=== PATIENT | male | born 1965 | race Caucasian/White ===

== ENCOUNTER 2016-02-21 13:43 | Emergency (ER) | payer OTHER ==
[2016-02-21 14:45] VITALS: BP 129/76
[2016-02-21] MEDS ORDERED: Ketorolac INJ* 60 MG/2 ML VIAL IM ONE (15:43)
--- NOTE | 2016-03-06 22:28 | ED ---
Ana Colvin Anna, scribed for Susy Maldonado MD on 02/21/16 at 1541 . Back Pain - HPI Summary HPI Summary: Patient is a 50 y/o male coming to [facility] presenting with sudden onset of constant back pain that began at 09:40 when he slipped on a wet floor at work. He slipped twice, once at 09:30 and once at 09:40, and that is when the pain began. The patient worked until 13:00. Per triage notes, the patient describes the severity of the pain as 10/10. The patient reports that he has hurt his back previously, when he would lift something heavy or slip and twist his back. He was previously treated with Toradol, which alleviated the pain somewhat. The patient reports that he has history of addiction and no adverse reactions to his previous treatments. He additionally reports he has a cold for the last 2- 3 weeks. He uses an inhaler normally but ran out. - History of Current Complaint Chief Complaint: UCBackPain Stated Complaint: BACK PAIN Hx Obtained From: Patient - Allergies/Home Medications Allergies/Adverse Reactions: Allergies Allergy/AdvReac Type Severity Reaction Status Date / Time Penicillins Allergy Severe Swelling Verified 03/06/16 09:40 Of Face,Lips,& Throat Bee Venom Allergy See Comment Verified 03/06/16 09:40 Live Virus Medication Allergy Intermediate Hives Uncoded 03/06/16 09:40 LATEX Allergy Rash Uncoded 03/06/16 09:40 NEOPRENE Allergy Rash Uncoded 03/06/16 09:40 PMH/Surg Hx/FS Hx/Imm Hx Endocrine/Hematology History: Denies: Hx Anticoagulant Therapy, Hx Diabetes, Hx Thyroid Disease Cardiovascular History: Denies: Hx Congestive Heart Failure, Hx Deep Vein Thrombosis, Hx Hypertension , Hx Myocardial Infarction, Hx Pacemaker/ICD Respiratory History: Reports: Hx Asthma - keeps inhalers Denies: Hx Chronic Obstructive Pulmonary Disease (COPD), Hx Lung Cancer GI History: Denies: Hx Gall Bladder Disease, Hx Gastrointestinal Bleed, Hx Ulcer, Hx Urosepsis History: Denies: Hx Kidney Stones, Hx Renal Disease Musculoskeletal History: Reports: Other Musculoskeletal History - right knee problems Neurological History: Denies: Hx Dementia, Hx Migraine, Hx Seizures, Hx Transient Ischemic Attacks (TIA) Psychiatric History: Reports: Hx Anxiety Denies: Hx Depression, Hx Schizophrenia, Hx Bipolar Disorder - Surgical History Surgery Procedure, Year, and Place: torn meniscus R knee; TFCC reattachment L hand Infectious Disease History: No Infectious Disease History: Denies: Hx Clostridium Difficile, Hx Hepatitis, Hx Human Immunodeficiency Virus (HIV), Hx of Known/Suspected MRSA, Hx Shingles, Hx Tuberculosis, Hx Known/ Suspected VRE, Hx Known/Suspected VRSA, History Other Infectious Disease, Traveled Outside the [place] in Last 30 Days - Family History Known Family History: Positive: Hypertension, Other - Brother has Hep C - Social History Occupation: Employed Full-time Alcohol Use: Rare Substance Use Type: Reports: None Smoking Status (MU): Light Every Day Tobacco Smoker Type: Cigarettes Amount Used/How Often: 1/2 ppd Length of Time of Smoking/Using Tobacco: 20+ YEARS Review of Systems Constitutional: Other - see hpi Eyes: Negative ENT: Negative Cardiovascular: Negative Respiratory: Negative Positive: Other - recovering from cold Gastrointestinal: Negative Genitourinary: Negative Positive: Arthralgia, Myalgia - See HPI Neurological: Other - see hpi Psychological: Normal All Other Systems Reviewed And Are Negative: Yes Physical Exam Triage Information Reviewed: Yes Vital Signs On Initial Exam: Initial Vitals Temp Pulse Resp BP Pulse Ox 97.8 F 73 18 129/76 98 02/21/16 14:41 02/21/16 14:41 02/21/16 14:41 02/21/16 14:41 02/21/16 14:41 Vital Signs Reviewed: Yes Appearance: Positive: Well-Nourished Skin: Positive: Other - Normal, no visible or reported rash Eyes: Positive: Normal ENT: Positive: Normal ENT inspection Neck: Positive: Other: - Normal, No adenopathy appreciated Respiratory/Lung Sounds: Positive: Other - Normal, no dyspnea, no tachypnea, normal respiratory rate. Chest non-tender, lungs clear, normal breath sounds, no respiratory distress, no accessory muscle use. Cardiovascular: Positive: Normal - Heart rate regular, good general skin color, good capillary refill. Reflexes B, BR, P were 2++ and equal bilaterally. Abdomen Description: Positive: Nontender, No Organomegaly, Soft Musculoskeletal: Positive: Other - Tender, left side low back. No point jay tenderness. + spasm low back. Denies b/b issue. Neurological: Positive: Normal - Nonfocal, grossly intact, Other - gait slow, steady. c/o pain. Psychiatric: Positive: Normal - Conversing easily and appropriately Diagnostics - Vital Signs Vital Signs Temp Pulse Resp BP Pulse Ox 02/21/16 14:41 97.8 F 73 18 129/76 98 - Laboratory Lab Statement: Any lab studies that have been ordered have been reviewed, and results considered in the medical decision making process. Back Pain Course/Dx - Course Course Of Treatment: ISTOP ref # [id number]. Mr. Hyatt insists that he wants to return to work tomorrow. Says that this has happened a number of times, and gets better with pain med and waiting a day. last script for norco 03/08/15 # 20. He also requests toradol shot. Encouraged to f/u with PCP, Dr. Foote. He says that he plans to, but has to cover the bill first. States he has had this problem several times in the past. Assessment/Plan: see above - Diagnoses Provider Diagnoses: Low back strain Discharge - Discharge Plan Condition: Stable Disposition: HOME Prescriptions: Albuterol HFA INHALER* [Ventolin HFA Inhaler*] 1 - 2 puff INH Q4H PRN #1 mdi PRN Reason: Wheezing Patient Education Materials: Sciatica (ED), Low Back Strain (ED) Forms: *Work Release Referrals: Shukri Foote MD [Medical Doctor] - No Primary Care Phys,NOPCP [Primary Care Provider] - The documentation as recorded by the Ana almonte Anna accurately reflects the service I personally performed and the decisions made by me, Susy Maldonado MD.
== END 2016-02-21 16:00 | disposition home or self-care (01) ==
LOC: UCEAST 13:43
DX: S39.012A Strain of muscle, fascia and tendon of lower back, initial encounter (principal); W18.49XA Other slipping, tripping and stumbling without falling, initial encounter; Y93.9 Activity, unspecified; Y92.89 Other specified places as the place of occurrence of the external cause; Y99.0 Civilian activity done for income or pay; Z88.0 Allergy status to penicillin; F17.210 Nicotine dependence, cigarettes, uncomplicated
CPT/HCPCS: 96372; 99212; G0463; J1885

== ENCOUNTER 2016-03-04 17:11 | Emergency (ER) | payer OTHER ==
[2016-03-04 17:20] VITALS: BP 135/77
[2016-03-04] MEDS ORDERED: Sulfamethox/Trimethoprim DS 800/160* TAB PO ONE (17:35)
[2016-03-04] MEDS ORDERED: Cephalexin CAP* 500 MG PO ONE (17:35)
[2016-03-04] MEDS ORDERED: Tetan/Diph/Pertus SYR(Tdap)* 0.5 ML SYR(BOOSTRIX) use SYR IM ONE (17:35)
--- NOTE | 2016-03-04 17:43 | UC ---
Hand/Wrist HPI - HPI Summary HPI Summary: 50 yo male states he got a splinter in his right middle finger about 5 days ago States he pulled a "black thing out" Since then his finger has swelled and now he has red streaks on the dorsum of his hand no f/c no n/v no hx MRSA - History Of Current Complaint Chief Complaint: UCSkin Stated Complaint: HAND AND ELBOW PAIN Time Seen by Provider: 03/04/16 17:23 Hx Obtained From: Patient Onset/Duration: Sudden Onset, Lasting Days Severity Initially: Mild Severity Currently: Moderate Pain Intensity: 7 Pain Scale Used: 0-10 Numeric Character Of Pain: Aching, Throbbing Aggravating Factor(s): Movement, Other - touch Alleviating: Rest, Elevation Associated Signs And Symptoms: Positive: Swelling, Redness Related History: Dominant Hand Right - Allergies/Home Medications Allergies/Adverse Reactions: Allergies Allergy/AdvReac Type Severity Reaction Status Date / Time Penicillins Allergy Severe Swelling Verified 03/04/16 17:20 Of Face,Lips,& Throat Bee Venom Allergy See Comment Verified 03/04/16 17:20 Live Virus Medication Allergy Intermediate Hives Uncoded 03/04/16 17:20 LATEX Allergy Rash Uncoded 03/04/16 17:20 NEOPRENE Allergy Rash Uncoded 03/04/16 17:20 Home Medications: Home Medications Baclofen TAB* [Lioresal TAB*] 10 mg PO TID PRN 03/04/16 [History Confirmed 03/04] PMH/Surg Hx/FS Hx/Imm Hx Previously Healthy: Yes Endocrine History Of: Denies: Diabetes, Thyroid Disease, Hyperthyroidism, Hypothyroidism, Dyslipidemia Cardiovascular History Of: Denies: Cardiac Disorders, Hypertension, Pacemaker/ICD, Myocardial Infarction , Congestive Heart Failure, Atrial Fibrillation, Deep Vein Thrombosis, Bleeding Disorders Respiratory History Of: Reports: Asthma - keeps inhalers Denies: COPD GI/ History Of: Denies: Gastroesophageal Reflux, Ulcer, Gastrointestinal Bleed, Gall Bladder Disease, Kidney Stones, Diverticulitis, Renal Disease, Urosepsis Neurological History Of: Denies: TIA, CVA, Dementia, Seizures, Migraine Psychological History Of: Reports: Anxiety Denies: Depression, Bipolar Disorder, Schizophrenia, Post Traumatic Stress Disorder Cancer History Of: Denies: Lung Cancer, Colorectal Cancer, Breast Cancer, Prostate Cancer, Cervical Cancer Other History Of: Negative For: HIV, Hepatitis B, Hepatitis C, Anticoagulant Therapy - Surgical History Surgical History: Yes Surgery Procedure, Year, and Place: torn meniscus R knee; TFCC reattachment L hand - Family History Known Family History: Positive: Hypertension, Other - Brother has Hep C - Social History Alcohol Use: Rare Substance Use Type: None Smoking Status (MU): Light Every Day Tobacco Smoker Type: Cigarettes Amount Used/How Often: 1/2 ppd Length of Time of Smoking/Using Tobacco: 20+ YEARS - Immunization History Most Recent Influenza Vaccination: NEVER Most Recent Tetanus Shot: UTD Review of Systems Constitutional: Negative Skin: Negative Eyes: Negative ENT: Negative Respiratory: Negative Cardiovascular: Negative Gastrointestinal: Negative Genitourinary: Negative Motor: Negative Neurovascular: Negative Musculoskeletal: Arthralgia Neurological: Negative Psychological: Negative All Other Systems Reviewed And Are Negative: Yes Physical Exam Triage Information Reviewed: Yes Appearance: Well-Appearing, No Pain Distress, Well-Nourished Vital Signs: Initial Vital Signs Temp 98.2 F 03/04/16 17:14 Pulse 81 03/04/16 17:14 Resp 16 03/04/16 17:14 BP 135/77 03/04/16 17:14 Pulse Ox 98 03/04/16 17:14 Vital Signs Reviewed: Yes Eyes: Positive: Conjunctiva Clear ENT: Positive: Hearing grossly normal. Negative: Nasal congestion, Nasal drainage, Trismus, Muffled/hoarse voice Neck: Positive: Supple, Nontender, No Lymphadenopathy Respiratory: Positive: Lungs clear, Normal breath sounds, No respiratory distress, No accessory muscle use Cardiovascular: Positive: RRR, No Murmur. Negative: Tachycardia, Bradycardia Musculoskeletal: Positive: Other: - see image Neurological: Positive: Alert Psychological Exam: Normal Skin Exam: Other - see image Procedures - Procedure Summary Procedure Summary: incision and drainage of RIGHT MIDDLE FINGER permit signed time out digital block sterile prep incised at site of healed PW thin serous d/c unable to find FB despite probing culture obtained - Incision and Drainage Site: Right Middle finger Anesthesia: Digital, Lidocaine - marcaine/bicarb Instrument(s): Needle Hand/Wrist Course/Dx - Differential Dx/Diagnosis Provider Diagnoses: Right middle finger infection (suspect retained foreign body ). Ascending Lymphangitis - Physician Notifications Discussed Patient Care With: D/W Dr. Gonzalez- states pt should call office in AM and see Dr. Sanchezkristin Lewis Discharge - Discharge Plan Condition: Stable Disposition: HOME Prescriptions: Cephalexin CAP* [Keflex CAP*] 500 mg PO QID #28 cap Diclofenac 1% GEL (NF) [Voltaren 1% GEL (NF)] 1 applic TOPICAL DAILY #1 tube HYDROcodone/ACETAMIN 5-325 MG* [[place] 5-325 TAB*] 1 tab PO Q4H PRN #12 tab MDD 6 PRN Reason: Pain Sulfamethox/Trimethoprim DS* [Bactrim DS 800/160 TAB*] 1 tab PO BID #14 tab Patient Education Materials: Soft Tissue Foreign Body (ED), Lymphangitis (ED) Forms: *Work Release Referrals: Radha Sanchez MD [Medical Doctor] - 1 Day Additional Instructions: As discussed I suspect you have a retained foreign body in your right middle finger It is infected a culture is pending take another bactrim DS tonight then one twice daily take another keflex tonight then one 4x day call orthopedist in I spoke to Dr. Gonzalez He said to call and make an appt with Dr. Sanchez or Joshua Images Hands: 1 - abscess/finger swollen and red 2 - red streaks
[2016-03-04] MEDS ORDERED: Lidocaine 2% PF * 5 ML VIAL ONE (17:45)
[2016-03-04] MEDS ORDERED: Bupivacaine 0.25% SDV* 30 ML ONE (17:46)
[2016-03-04] MEDS ORDERED: Sodium Bicarbonate 8.4% IV* 50 ML VIAL ONE (17:49)
--- NOTE | 2016-03-04 18:11 | RAD ---
Indication: Sliver in RIGHT middle finger medial aspect proximal phalanx level. Swelling, pain, decreased range of motion. Comparison: May 11, 2012 Technique: 3 views RIGHT third finger. Report: No conspicuous foreign body evident. Soft tissue swelling greatest along the medial aspect from the proximal through the distal phalangeal level. Negative for subcutaneous emphysema. Normal articular alignment. Negative for fracture or periosteal reaction. Osteophytosis noted at the fourth proximal interphalangeal joint without change. IMPRESSION: Soft tissue swelling greatest along the medial aspect of the third finger. No conspicuous foreign body.
== END 2016-03-04 18:50 | disposition home or self-care (01) ==
LOC: UCEAST 17:11
DX: L03.021 Acute lymphangitis of right finger (principal); B95.62 Methicillin resistant Staphylococcus aureus infection as the cause of diseases classified elsewhere; Z23 Encounter for immunization; Z88.0 Allergy status to penicillin; F17.210 Nicotine dependence, cigarettes, uncomplicated
CPT/HCPCS: 10060; 73140; 87070; 87077; 87186; 87205; 87640; 87641; 90471; 90715; 99212; A9270-GY; G0463

== ENCOUNTER → 2016-03-06 08:40 | Day surgery (SDC) | payer OTHER ==
--- NOTE | 2016-03-05 16:38 | HP ---
PREOPERATIVE HISTORY AND PHYSICAL: DATE OF ADMISSION/SURGERY: 03/06/16 [facility] ATTENDING SURGEON: Radha Sanchez MD PROCEDURE: Right long finger incision and drainage, removal of foreign body. HISTORY OF PRESENT ILLNESS: This is a 50-year-old male who complains of pain, swelling, and redness of his right ring finger for over the past few days. He is not sure if he got a sliver in his finger or not. He thinks maybe he pulled a foreign body out of his finger, but he is not sure. He was seen at [facility] on 03/04/16, and the physician there tried to remove the foreign body and placed him on some oral antibiotics. He has had some improvement in that the streaking up his arm has gone down,, now he just has persistent swelling, redness and drainage from the ring finger around the area of injury. He is on Keflex and Bactrim, This is his dominant hand. He reports no fevers. PAST MEDICAL HISTORY: Asthma. PAST SURGICAL HISTORY: 1. Left hand x2 including the TFCC repair. 2. Right knee surgery x3. CURRENT MEDICATIONS: Baclofen 10 mg daily and Ventolin HFA 108 90-base mcg/act inhaler q.4 hours p.r.n. wheezing, additionally as prescribed by the emergency room Keflex 500 mg 3 times a day, Bactrim DS 800-160 mg twice a day and [place] 5/ 325 mg 1 tablet q4 to 6 hours p.r.n. pain. ALLERGIES: To PENICILLIN and LIVE VIRUSES causes hives. FAMILY MEDICAL HISTORY: Unremarkable. 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 He is a smoker, smokes half a pack per day and has done so for the past 30 years. He denies illicit drug use. Reports alcohol use on rare occasion. REVIEW OF SYSTEMS: General: Negative for fever, chills or night sweats. No known anesthesia problems. HEENT: Negative for headache, lightheadedness or syncopal episodes. Integumentary: Positive for current wound on right middle finger. Cardiothoracic: Negative for chest pain, palpitations or edema. Negative for hypertension. Pulmonary: Positive for asthma. Negative for shortness of breath with exertion, chronic cough or COPD. GI: Negative for nausea, vomiting, diarrhea, constipation or GERD. : Negative for nocturia, urinary frequency, urgency, history of UTIs or kidney problems. Musculoskeletal : Positive for current complaint. Negative for chronic or intermittent back pain. No history of fractures. Neurological: Negative for paresthesias, numbness, history of seizures, stroke or epilepsy. Endocrine: Negative for diabetes or thyroid issues. Hematologic: Negative for easy bruising, anemia, excessive bleeding or history of DVT. Infectious Disease: Negative for history of MRSA, hepatitis C or HIV. PHYSICAL EXAMINATION GENERAL: Well-developed, well-nourished, 50-year-old in no acute distress. VITAL SIGNS: Height 5 feet 10 inches, weight 215 pounds, pulse rate 60, blood pressure 132/76. HEENT: Normocephalic, atraumatic. Pupils are equal, round and reactive to light and accommodation. Extraocular movements are intact. NECK: Supple. No palpable lymph nodes. Throat is clear. CARDIOTHORACIC: Regular rate and rhythm. S1 and S2. No murmurs, rubs or gallops. No edema. PULMONARY: Lungs are clear to auscultation bilaterally. No wheezes, rales or rhonchi. ABDOMEN: Positive bowel sounds, soft, nontender. NEUROLOGICAL: Alert and oriented x3. Cranial nerves II through XII are intact. Sensation is intact to light touch. MUSCULOSKELETAL: On exam of the right upper extremity on the right hand, there is a small open wound on the radial aspect of the ring finger with some purulent drainage and surrounding erythema. He has good motion and flexion and extension of the finger and neurovascular function is intact. IMPRESSION: Right ring finger abscess with possible foreign body. PLAN: The patient is scheduled to undergo incision and drainage of the right ring finger with Dr. Sanchez on 03/06/16. He will return to the office in 10 to 14 days postop for followup. A prescription for Orlando was e-scribed for the patient's pharmacy for postoperative pain management. KASSIDY CORREA [id number]/[facility] #: [id number]/CPS #: [id number] - correction to Plan MTDD
--- NOTE | 2016-03-05 16:38 | HP ---
PREOPERATIVE HISTORY AND PHYSICAL:* ADDENDUM: Addendum to the preoperative history and physical exam. DATE OF ADMISSION/SURGERY: 03/06/16 ATTENDING SURGEON: Radha Sanchez MD. PROCEDURE: Incision and drainage of the right ring finger. KASSIDY CORREA [id number]/[facility] #: [id number] [facility] HOSPITALRamon
[~2016-03-06 08:40] MED LIST: Buffered Lidocaine 1% SYR 3ML* 3 ML/SYR SYRINGE ONE; Famotidine IV* 10 MG/ML 2 ML (20 mg) ONE; Ketorolac INJ* 30 MG/ML 1 ML VIAL IV PRN; Lidocaine 1% INJ* 10 MG/ML 30 ML SDV ONE; Lidocaine 2% PF * 5 ML VIAL ONE; Midazolam* 1 MG/ML 2 ML VIAL (2 MG) ONE; Ondansetron INJ* 2 MG/ML VIAL IV PRN; PROCHLORPERAZINE INJ 5 MG/ML 2 ML VIAL IV PRN; Propofol* 10 MG/ML 20 ML BTL IV PUSH ONE; fentaNYL* 50 MCG/ML 2 ML VIAL (100 MCG VIAL) IV PRN; fentaNYL* 50 MCG/ML 2 ML VIAL (100 MCG VIAL) ONE; oxyCODONE/Acetamin 5/325 MG* TAB PO PRN
[2016-03-06 11:13] VITALS: BP 105/75
--- NOTE | 2016-03-06 20:48 | OP ---
DATE OF OPERATION: 03/06/16 - [facility] DATE OF : 61 SURGEON: Radha Sanchez MD CAN CONVEYOR FEEDER: KASSIDY Jose ANESTHESIOLOGIST: Eliud Perez MD ANESTHESIA: Local MAC. PRE-OP DIAGNOSIS: Right long finger abscess with possible foreign body. POST-OP DIAGNOSIS: Right long finger abscess without possible foreign body. OPERATIVE PROCEDURE: I and D of the right long finger. ESTIMATED BLOOD LOSS: Zero. TOURNIQUET TIME: About 10 minutes. INDICATION FOR PROCEDURE: Mj is a 50-year-old male who developed pain, redness, swelling, and streaks up his arms couple of days ago. He was seen at [facility], placed on an oral antibiotic, and the streaks in his arm went away, but he has persistent localized area of redness, pain, and drainage in his right middle finger. He thinks may be he has a foreign body in there, but he does not recall getting a foreign body. He presents for I and D and possible removal of foreign body of the right long finger. DESCRIPTION OF PROCEDURE: The patient was brought to the operating room, was given a sedation anesthetic and a digital block with 10 cc of 1% plain lidocaine. The skin of his right hand and forearm was prepped and draped in the usual sterile fashion. The hand and forearm were exsanguinated and the tourniquet elevated to 250 mmHg. A longitudinal incision was made incorporating the open wound, and we dissected through the subcutaneous tissue. The digital neurovascular bundle was carefully dissected out and protected. No foreign body was found. Cultures were taken. The wound was copiously irrigated with saline and then loosely closed with 4-0 nylon suture. The wound was dressed with Xeroform, 4x4, Webril, and Coban. The patient tolerated the procedure and was brought to the recovery room in good condition. [id number]/[facility] #: [id number] MTDD
== END | disposition home or self-care (01) ==
LOC: OREAST 08:40
PROVIDERS: ATTEND Orthopaedic Surgery
DX: L02.511 Cutaneous abscess of right hand (principal); F17.210 Nicotine dependence, cigarettes, uncomplicated
CPT/HCPCS: 87070; 87073; 87205; J2250; J2704; J3010

== ENCOUNTER 2016-03-12 22:30 | Inpatient (IN) | payer OTHER ==
[2016-03-12 23:41] LABS: Hematocrit 40 % (42-52); Hemoglobin 13.5 g/dl (14.0-18.0); Mean Corpuscular HGB Conc 34 g/dl (31-36); Mean Corpuscular Hemoglobin 31 pg (27-31); Mean Corpuscular Volume 93 fL (80-94); Mean Platelet Volume 8 um3 (7.4-10.4); Red Blood Count 4.32 10^6/ul (4.0-5.4); Red Cell Distribution Width 14 % (10.5-15); White Blood Count 13.2 10^3/ul (3.5-10.8)
[2016-03-12 23:50] LABS: Urine Bilirubin Negative (Negative); Urine Glucose Negative (Negative); Urine Nitrite Negative (Negative)
[2016-03-12 23:51] LABS: ALT 16 U/L (7-52); AST 25 U/L (13-39); Albumin 3.8 g/dL (3.2-5.2); Alkaline Phosphatase 55 U/L (34-104); Anion Gap 8 mmol/L (2-11); BUN/Creatinine Ratio 16.2 (8-20); Blood Urea Nitrogen 24 mg/dL (6-24); CO2 Carbon Dioxide 27 mmol/L (22-32); Calcium 9.1 mg/dL (8.6-10.3); Chloride 105 mmol/L (101-111); EGFR African American 64.2 (>60); EGFR Non-African American 49.9 (>60); Glucose 88 mg/dL (70-100); Potassium 4.2 mmol/L (3.5-5.0); Sodium 140 mmol/L (133-145); Total Protein 6.8 g/dL (6.4-8.9)
[2016-03-13 00:05] LABS: Benzodiazepine Urine Screen None Detected (None Detect)
[2016-03-13 00:59] LABS: Acetaminophen < 15 mcg/mL; Alcohol < 10 mg/dL (<10); Salicylate < 2.50 mg/dL (<30)
[2016-03-13 01:02] LABS: TSH (Thyroid Stimulating Horm) 1.66 mcIU/mL (0.34-5.60)
--- NOTE | 2016-03-13 05:58 | ED ---
Shantanu Colvin Matthew, scribed for Byron Glynn on 03/12/16 at 2331 . Altered Mental Status - HPI Summary HPI Summary: A 50 y/o male presents to the ED with altered mental status. The patient states that he is depressed and is having family issues. He attempted to overdose a couple of weeks ago. He has been on and off depression medications, because of insurance difficulties. He states that he has no Hx of bipolar disorder or schizophrenia. - History Of Current Complaint Chief Complaint: EDMentalHealth Stated Complaint: MHE Time Seen by Provider: 03/12/16 23:02 Hx Obtained From: Patient Onset/Duration: Still Present Timing: Constant Severity Initially: Moderate Severity Currently: Moderate Aggravating Factor(s): Other - Family Issues Alleviating Factor(s): Unknown Associated Signs And Symptoms: Positive: Negative Has Suicidal: Thoughts, Has Prior Attempt(s) - Allergies/Home Medications Allergies/Adverse Reactions: Allergies Allergy/AdvReac Type Severity Reaction Status Date / Time Penicillins Allergy Severe Swelling Verified 03/06/16 09:40 Of Face,Lips,& Throat Bee Venom Allergy See Comment Verified 03/06/16 09:40 Live Virus Medication Allergy Intermediate Hives Uncoded 03/06/16 09:40 LATEX Allergy Rash Uncoded 03/06/16 09:40 NEOPRENE Allergy Rash Uncoded 03/06/16 09:40 Home Medications: Home Medications NK [No Home Medications Reported] 03/13/16 [History Confirmed 03/13/16] PMH/Surg Hx/FS Hx/Imm Hx Endocrine/Hematology History: Denies: Hx Anticoagulant Therapy, Hx Diabetes, Hx Thyroid Disease Cardiovascular History: Denies: Hx Congestive Heart Failure, Hx Deep Vein Thrombosis, Hx Hypertension , Hx Myocardial Infarction, Hx Pacemaker/ICD Respiratory History: Reports: Hx Asthma - PRN INHALER Denies: Hx Chronic Obstructive Pulmonary Disease (COPD), Hx Lung Cancer GI History: Denies: Hx Gall Bladder Disease, Hx Gastrointestinal Bleed, Hx Ulcer, Hx Urosepsis History: Denies: Hx Kidney Stones, Hx Renal Disease Musculoskeletal History: Reports: Hx Arthritis, Other Musculoskeletal History - right knee problems Sensory History: Reports: Hx Contacts or Glasses - READING GLASSES Denies: Hx Hearing Aid Opthamlomology History: Reports: Hx Contacts or Glasses - READING GLASSES Neurological History: Reports: Hx Headaches - HX OF IN THE PAST, Hx Migraine - HX OF IN THE PAST Denies: Hx Dementia, Hx Seizures, Hx Transient Ischemic Attacks (TIA) Psychiatric History: Reports: Hx Anxiety, Hx Depression Denies: Hx Schizophrenia, Hx Bipolar Disorder - Surgical History Surgery Procedure, Year, and Place: torn meniscus R knee; TFCC reattachment L hand Hx Anesthesia Reactions: No Infectious Disease History: No Infectious Disease History: Denies: Hx Clostridium Difficile, Hx Hepatitis, Hx Human Immunodeficiency Virus (HIV), Hx of Known/Suspected MRSA, Hx Shingles, Hx Tuberculosis, Hx Known/ Suspected VRE, Hx Known/Suspected VRSA, History Other Infectious Disease, Traveled Outside the [place] in Last 30 Days - Family History Known Family History: Positive: Hypertension, Other - Brother has Hep C - Social History Alcohol Use: Rare Substance Use Type: Reports: None Smoking Status (MU): Light Every Day Tobacco Smoker Type: Cigarettes Amount Used/How Often: 1/2 ppd X OFF AND ON Length of Time of Smoking/Using Tobacco: 20+ YEARS Review of Systems Constitutional: Negative Eyes: Negative ENT: Negative Cardiovascular: Negative Respiratory: Negative Gastrointestinal: Negative Genitourinary: Negative Musculoskeletal: Negative Skin: Negative Neurological: Negative Psychological: Other - SI Positive: Depressed All Other Systems Reviewed And Are Negative: Yes Physical Exam Triage Information Reviewed: Yes Vital Signs On Initial Exam: Initial Vitals Temp Pulse Resp BP Pulse Ox 97.7 F 78 20 128/74 97 03/12/16 22:37 03/12/16 22:37 03/12/16 22:37 03/12/16 22:37 03/12/16 22:37 Vital Signs Reviewed: Yes Appearance: Positive: Well-Appearing, No Pain Distress Skin: Positive: Warm, Skin Color Reflects Adequate Perfusion, Dry Head/Face: Positive: Normal Head/Face Inspection Eyes: Positive: EOMI, EULOGIO ENT: Positive: Normal ENT inspection Neck: Positive: Supple, Nontender Respiratory/Lung Sounds: Positive: Clear to Auscultation, Breath Sounds Present Cardiovascular: Positive: RRR Abdomen Description: Positive: Nontender, Soft Bowel Sounds: Positive: Present Musculoskeletal: Positive: Normal, Strength/ROM Intact Neurological: Positive: Normal, Sensory/Motor Intact, Alert, Oriented to Person Place, Time - [place] Coma Scale Coma Scale Total: 15 Diagnostics - Vital Signs Vital Signs Temp Pulse Resp BP Pulse Ox 03/12/16 22:37 97.7 F 78 20 128/74 97 - Laboratory Result Diagrams: 03/12/16 23:00 03/12/16 23:00 Lab Statement: Any lab studies that have been ordered have been reviewed, and results considered in the medical decision making process. - EKG 22:46 Cardiac Rate: NL - 65 bpm EKG Rhythm: Sinus Rhythm EKG Interpretation: No Acute Changes Altered Mental Statu Course/Dx - Course Assessment/Plan: A 50 y/o male presents to the ED with altered mental status. That patient states that he is depressed and is having suicidal ideations. The patient is medically cleared for a MHE. - Diagnoses Discharge Diagnoses: Depression, Suicidal ideation Discharge - Discharge Plan Condition: Stable Disposition: [facility]ATR[facility] [place] Referrals: No Primary Care Phys,NOPCP [Primary Care Provider] - The documentation as recorded by the Shantanu almonte Matthew accurately reflects the service I personally performed and the decisions made by , Byron Glynn.
[2016-03-13] MEDS ORDERED: Nicotine Inhaler* 10 MG AMP INH PRN (10:04)
--- NOTE | 2016-03-13 11:41 | PN ---
Rodrick Colvin SooYoung, scribed for Praneeth Cruz MD on 03/13/16 at 1133 . Progress Note - Progress Note Note: Sign-out from Dr. Glynn for MHE. 913 signed. Pt is stable, and will be admitted to Behavioral Unit. Dx: depression. The documentation as recorded by the Rodrick almonte SooYoung accurately reflects the service I personally performed and the decisions made by , Praneeth Cruz MD.
[2016-03-13] MEDS ORDERED: FLUoxetine CAP* 20 MG PO SCH (16:00)
[2016-03-13] MEDS: FLUoxetine CAP* 20 MG PO SCH (16:03)
[2016-03-13] MEDS: Mouth Piece, Nicotine* 1 EACH CARTRIDGE INH ONE ×2 (16:04→17:16)
[2016-03-13] MEDS ORDERED: Mouth Piece, Nicotine* 1 EACH CARTRIDGE ONE (17:15)
[2016-03-13] MEDS: hydrOXYzine HCL TAB* 50 MG PO PRN (17:16)
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
[2016-03-13] MEDS: traZODone TAB* 50 MG TAB PO PRN (21:16)
[2016-03-14] MEDS: FLUoxetine CAP* 20 MG PO SCH (08:50)
[2016-03-14] MEDS: hydrOXYzine HCL TAB* 50 MG PO PRN ×3 (08:51→19:55)
[2016-03-14 10:21] LABS: EGFR African American 77.3 (>60); EGFR Non-African American 60.1 (>60)
[2016-03-14] MEDS: traZODone TAB* 50 MG TAB PO PRN (19:55)
[2016-03-15] MEDS: FLUoxetine CAP* 20 MG PO SCH (08:37)
[2016-03-15] MEDS: hydrOXYzine HCL TAB* 50 MG PO PRN ×3 (08:38→17:21)
[2016-03-15 09:15] VITALS: BP 129/59
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
[2016-03-15] MEDS: traZODone TAB* 50 MG TAB PO PRN (20:06)
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
[2016-03-16 08:26] LABS: EGFR African American 92.3 (>60); EGFR Non-African American 71.8 (>60)
[2016-03-16] MEDS: hydrOXYzine HCL TAB* 50 MG PO PRN (08:37)
[2016-03-16] MEDS: FLUoxetine CAP* 20 MG PO SCH (08:38)
[2016-03-16] MEDS ORDERED: Al Hydrox/Mg Hydrox/Simet LIQ* 30 ML UDC PO PRN (10:16)
== END 2016-03-16 10:35 | disposition home or self-care (01) | DRG 755 ==
LOC: ED 22:30 → BSU 03-13 13:25
PROVIDERS: ADMIT Psychiatry & Neurology Psychiatry; ATTEND Psychiatry & Neurology Psychiatry
DX: F43.23 Adjustment disorder with mixed anxiety and depressed mood (principal); R45.851 Suicidal ideations; F17.210 Nicotine dependence, cigarettes, uncomplicated; F10.10 Alcohol abuse, uncomplicated; F12.10 Cannabis abuse, uncomplicated
CPT/HCPCS: 36415; 80053; 80307; 80320; 80329; 81003; 82565; 84443; 85025; 85048; 86703; 93005; 99222; 99231; 99238; 99284; A9270-GY; G0480

== ENCOUNTER 2016-04-27 10:52 | Emergency (ER) | payer OTHER ==
[2016-04-27 11:48] VITALS: BP 107/64
--- NOTE | 2016-04-27 14:51 | UC ---
Jourdan Colvin Salem, scribed for Andrew Hutchins MD on 04/27/16 at 1214 . Ear Complaint HPI - HPI Summary HPI Summary: Patient is a 50 y/o male who presents to the with ear pain. Pt states that his ears have felt plugged for a while. He denies a cough or any other sx. He states that he occasionally cleans his ears, but has not recently. Sx are not alleviated or aggravated with anything. - History of Current Complaint Chief Complaint: UCRespiratory Stated Complaint: PLUGGED EARS Time Seen by Provider: 04/27/16 11:54 Hx Obtained From: Patient Onset/Duration: Gradual Onset, Lasting Days Severity Initially: Moderate Severity Currently: Moderate Aggravating Factors: Nothing Alleviating Factors: Nothing - Allergies/Home Medications Allergies/Adverse Reactions: Allergies Allergy/AdvReac Type Severity Reaction Status Date / Time Penicillins Allergy Severe Swelling Verified 03/13/16 15:34 Of Face,Lips,& Throat Bee Venom Allergy See Comment Verified 03/13/16 15:34 Live Virus Medication Allergy Intermediate Hives Uncoded 03/13/16 15:34 LATEX Allergy Rash Uncoded 03/13/16 15:34 NEOPRENE Allergy Rash Uncoded 03/13/16 15:34 PMH/Surg Hx/FS Hx/Imm Hx Respiratory History Of: Reports: Asthma - PRN INHALER Denies: COPD Neurological History Of: Reports: Migraine - HX OF IN THE PAST Denies: TIA, CVA, Dementia, Seizures Psychological History Of: Reports: Anxiety, Depression Denies: Bipolar Disorder, Schizophrenia, Post Traumatic Stress Disorder Cancer History Of: Denies: Lung Cancer, Colorectal Cancer, Breast Cancer, Prostate Cancer, Cervical Cancer Other History Of: Negative For: HIV, Hepatitis B, Hepatitis C, Anticoagulant Therapy - Surgical History Surgical History: Yes Surgery Procedure, Year, and Place: torn meniscus R knee; TFCC reattachment L hand - Family History Known Family History: Positive: Hypertension, Other - Brother has Hep C. Fhx of ENT. - Social History Alcohol Use: Rare Substance Use Type: Marijuana Smoking Status (MU): Heavy Every Day Tobacco Smoker Type: Cigarettes Amount Used/How Often: 1PPD for the last 30 days Length of Time of Smoking/Using Tobacco: 20+ YEARS - Immunization History Most Recent Influenza Vaccination: NEVER Most Recent Tetanus Shot: UTD Most Recent Pneumonia Vaccination: NA Review of Systems Constitutional: Negative ENT: Ear Ache Respiratory: Negative All Other Systems Reviewed And Are Negative: Yes Physical Exam Triage Information Reviewed: Yes Appearance: Well-Appearing, No Pain Distress, Other: - Comfortable. Pleasant. Vital Signs: Initial Vital Signs Temp 97.4 F 04/27/16 11:45 Pulse 70 04/27/16 11:45 Resp 16 04/27/16 11:45 BP 107/64 04/27/16 11:45 Pulse Ox 99 04/27/16 11:45 Vital Signs Reviewed: Yes ENT: Positive: Other: - MMM. No pinna or tragal tenderness. Neck: Positive: Supple, Nontender, No Lymphadenopathy Respiratory: Positive: Lungs clear. Negative: Wheezing Cardiovascular: Positive: RRR, No Murmur, Other: - No gallops or rubs. Abdomen Description: Positive: Nontender, No Organomegaly, Soft Musculoskeletal: Positive: Strength Intact Neurological: Positive: Alert Psychological: Positive: Age Appropriate Behavior Ear Complaint Course/Dx - Differential Dx/Diagnosis Provider Diagnoses: Left otitis externus. Discharge - Discharge Plan Condition: Stable Disposition: HOME Prescriptions: Ciproflox/Dexameth OTIC.SUSP* [Ciprodex OTIC.SUSP*] 2 drop .SEE ORDER BID #15 btl Ciprofloxacin HCl (Otic) [Ciprofloxacin 0.2% EAR DROPS] 0.2 % OT BID #15 sharri Patient Education Materials: Otitis Externa (ED) Referrals: [facility] [place] [facility] REFERRAL [Outside] The documentation as recorded by the Jourdan almonte Salem accurately reflects the service I personally performed and the decisions made by , Andrew Hutchins MD.
== END 2016-04-27 12:33 | disposition home or self-care (01) ==
LOC: UCEAST 10:52
DX: H60.92 Unspecified otitis externa, left ear (principal); Z88.0 Allergy status to penicillin; F17.210 Nicotine dependence, cigarettes, uncomplicated
CPT/HCPCS: 99212; G0463